=== PATIENT | male | born 1950 | race Caucasian/White ===

== ENCOUNTER 2017-02-23 00:03 | Inpatient (IN) | payer MEDICARE, MEDICAID ==
[~2017-02-23] VITALS: Ht 172.7 cm; Wt 74.8 kg
[~2017-02-23 00:03] MED LIST: ACET325T14 PO; ALBU0.63 NEB; ALPR0.257 PO; AMLO10TA2 PO; AMLO10TA4 PO; AMLODIPINE; ASPI325T4 PO; B1/B1TAB2 PO; BISA10SU2 PR; CARV3.122 PO; CARV6.2512 PO; CEFD300C37 PO; CLON0.2T PO; DIAZ5TAB4 PO; DOXE75CA PO; DOXY100T PO; ERYT1OIN5 RIGHTEYE; GABA-826 PO; GABA300C10 PO; INSU100C5 SQ-INSULIN; ISOS30TA8 PO; LISI-170 PO; MAGN400O4 PO; MECL25TA2 PO; MECL25TA4 PO; METH500T7 PO; MINO2.5T PO; NITR0.4T8 SL; NOVOLOG SC; NPH,100V SQ; OMEP40CA6 PO; ONDA4TAB7 PO; OXYC-302 PO; PANT40TA3 PO; RANI150T4 PO; ROPI0.2537 PO; SENN-31 PO; SEPTRA; SEVE800T8 PO; SIMV20TA3 PO; TIZA4CAP2 PO; TRAZ100T15 PO; VITA1TAB19 PO; ZOLP-413 PO; [UNRECOGNIZED DRUG - OTHER]
[2017-02-23] MEDS ORDERED: ASPIRIN 81 MG TABLET CHEW PO ONE (00:30)
[2017-02-23 00:41] LABS: BLOOD UREA NITROGEN 38 mg/dL (7-18)
[2017-02-23] MEDS ORDERED: ONDANSETRON 2MG/ML, 2ML ONE (00:42)
[2017-02-23 00:49] LABS: IS PT STATUS REG ER OR PRE ER? YES
[2017-02-23] MEDS ORDERED: ONDANSETRON 2MG/ML, 2ML IVPush ONE (01:00)
[2017-02-23] MEDS ORDERED: MORPHINE SULFATE 4 MG/ML, 1ML IVPush PRN ×2 (01:30→02:00)
[2017-02-23] MEDS ORDERED: MORPHINE SULFATE 4 MG/ML, 1ML ONE ×2 (01:32→02:08)
[2017-02-23] MEDS ORDERED: ONDANSETRON 2MG/ML, 2ML IVPush PRN ×2 (02:00→03:00)
[2017-02-23] MEDS: INSULIN ASPART 100 UNITS/ML, PEN SQ-INSULIN SCH ×4 (02:59→16:00)
[2017-02-23] MEDS ORDERED: ACETAMINOPHEN 325 MG TABLET PO PRN (03:00)
[2017-02-23] MEDS ORDERED: HYDROcodone/APAP 5/325 TABLET PO PRN (03:00)
[2017-02-23] MEDS ORDERED: POLYETHYLENE GLYCOL 17 GM PACKET PO PRN (03:00)
[2017-02-23] MEDS ORDERED: GLUCAGON 1 MG IM PRN (03:00)
[2017-02-23] MEDS ORDERED: hydrALAzine 20 MG/ML, 1ML IVPush PRN (03:00)
[2017-02-23] MEDS ORDERED: DOCUSATE 100 MG CAPSULE PO PRN (03:00)
[2017-02-23] MEDS ORDERED: NITROGLYCERIN 0.4 MG BOTTLE (25 TABS) SL PRN (03:00)
[2017-02-23] MEDS ORDERED: BISACODYL 10 MG SUPP PR PRN (03:00)
[2017-02-23] MEDS ORDERED: DEXTROSE 4 GM TAB.CHEW PO PRN (03:00)
[2017-02-23] MEDS ORDERED: morphine SULFATE 10 MG/ML, 1ML IVPush PRN (03:00)
[2017-02-23] MEDS ORDERED: DEXTROSE 50%, 50ML SYRINGE IVPush PRN (03:00)
[2017-02-23] MEDS ORDERED: TEMAZEPAM 15 MG CAPSULE PO PRN (03:00)
[2017-02-23] MEDS ORDERED: DIPHENHYDRAMINE 50 MG/ML, 1ML ONE ×2 (03:16→14:04)
[2017-02-23 03:23] VITALS: BP 187/96
[2017-02-23] MEDS ORDERED: DIPHENHYDRAMINE 50 MG/ML, 1ML IVPush ONE ×2 (03:30→14:30)
[2017-02-23] MEDS ORDERED: PROMETHAZINE 25 MG/ML, 1ML IM PRN (03:30)
[2017-02-23 05:42] VITALS: BP 121/73
[2017-02-23 06:30] LABS: IS PT STATUS REG ER OR PRE ER? NO
[2017-02-23] MEDS ORDERED: OMEPRAZOLE 20 MG CAPSULE.DR PO SCH (07:30)
[2017-02-23 08:00] VITALS: BP 176/82
[2017-02-23] MEDS ORDERED: ASPIRIN 325 MG TABLET PO SCH (09:00)
[2017-02-23] MEDS ORDERED: ROPINIROLE 0.25MG TABLET PO SCH (09:00)
[2017-02-23] MEDS ORDERED: LISINOPRIL 20 MG TABLET PO SCH (09:00)
[2017-02-23] MEDS ORDERED: SEVELAMER 800MG TABLET PO SCH (09:00)
[2017-02-23] MEDS ORDERED: FAMOTIDINE 20 MG TABLET PO SCH (09:00)
[2017-02-23] MEDS ORDERED: AMLODIPINE 5 MG TABLET PO SCH (09:00)
[2017-02-23] MEDS ORDERED: GABAPENTIN 300 MG CAPSULE PO SCH (09:00)
[2017-02-23] MEDS ORDERED: ISOSORBIDE MONONITRATE ER 30 MG TABLET PO SCH (09:00)
[2017-02-23] MEDS ORDERED: DIAZEPAM 5 MG TABLET PO SCH (09:00)
[2017-02-23] MEDS ORDERED: SODIUM CHLORIDE FLUSH 10ML SYR IVF SCH (09:00)
[2017-02-23] MEDS ORDERED: MINOXIDIL 2.5 MG TABLET PO SCH (09:00)
[2017-02-23 12:18] LABS: IS PT STATUS REG ER OR PRE ER? NO
[2017-02-23] MEDS ORDERED: CARV3.1212 PO (15:45)
[2017-02-23] MEDS ORDERED: SIMVASTATIN 20 MG TABLET PO SCH (21:00)
[2017-02-24 08:21] LABS: HEP B SURF. AB 7.6 mIU/mL (0.0-10.0)
== END 2017-02-23 19:28 | disposition home or self-care (01) | DRG 291 ==
LOC: ED 00:18 → EDIP 01:41 → SUATTDRO 02:13 → 5SO 02:49
PROC: 5A1D00Z (ICD-10-PCS; principal; 2017-02-23)
DX: I13.2 Hypertensive heart and chronic kidney disease with heart failure and with stage 5 chronic kidney disease, or end stage renal disease (principal); N18.6 End stage renal disease; I50.43 Acute on chronic combined systolic (congestive) and diastolic (congestive) heart failure; E44.0 Moderate protein-calorie malnutrition; D63.1 Anemia in chronic kidney disease; E11.22 Type 2 diabetes mellitus with diabetic chronic kidney disease; E78.5 Hyperlipidemia, unspecified; I08.3 Combined rheumatic disorders of mitral, aortic and tricuspid valves; I25.10 Atherosclerotic heart disease of native coronary artery without angina pectoris; G89.29 Other chronic pain; M54.9 Dorsalgia, unspecified; E11.42 Type 2 diabetes mellitus with diabetic polyneuropathy; I27.2 Other secondary pulmonary hypertension; K21.9 Gastro-esophageal reflux disease without esophagitis; Z79.4 Long term (current) use of insulin; Z68.25 Body mass index [BMI] 25.0-25.9, adult; Z80.0 Family history of malignant neoplasm of digestive organs; Z83.3 Family history of diabetes mellitus; Z86.718 Personal history of other venous thrombosis and embolism; Z87.891 Personal history of nicotine dependence; Z95.1 Presence of aortocoronary bypass graft; Z95.2 Presence of prosthetic heart valve; Z95.3 Presence of xenogenic heart valve; Z95.5 Presence of coronary angioplasty implant and graft; Z99.2 Dependence on renal dialysis
CPT/HCPCS: 36415; 71010; 80048; 82040; 82962; 84484; 85018; 85025; 86704; 86706; 87340; 93005; 93306; 96374; 96375; J2405; J0360; J1200

== ENCOUNTER 2017-10-18 19:44 | Emergency (ER) | payer MEDICARE, MEDICAID ==
[~2017-10-18] VITALS: Ht 172.7 cm; Wt 75.0 kg
[~2017-10-18 19:44] MED LIST changes: +ASPI325T17 PO; -ASPI325T4 PO; +CARV3.1212 PO; -MAGN400O4 PO; +MAGN400O7 PO; +NITR0.4T28 SL; -NITR0.4T8 SL
[2017-10-18] MEDS ORDERED: HYDROcodone/APAP 5/325 TABLET PO ONE (20:00)
[2017-10-18] MEDS ORDERED: HYDROcodone/APAP 5/325 TABLET ONE (20:04)
[2017-10-18] MEDS ORDERED: DIPHENHYDRAMINE 25 MG CAPSULE PO ONE (21:00)
[2017-10-18 21:22] VITALS: BP 124/62
== END 2017-10-18 21:25 | disposition home or self-care (01) ==
LOC: ED 21:10
DX: M94.0 Chondrocostal junction syndrome [Tietze] (principal); W18.39XA Other fall on same level, initial encounter; E11.22 Type 2 diabetes mellitus with diabetic chronic kidney disease; I25.10 Atherosclerotic heart disease of native coronary artery without angina pectoris; Z99.2 Dependence on renal dialysis; Y93.89 Activity, other specified; Y99.8 Other external cause status; Y92.89 Other specified places as the place of occurrence of the external cause
CPT/HCPCS: 71046; 93005; 99284

== ENCOUNTER 2017-11-09 10:52 | Inpatient (IN) | payer MEDICARE, MEDICAID ==
[~2017-11-09] VITALS: Ht 172.7 cm; Wt 71.0 kg
[2017-11-09 11:40] LABS: BASOPHILS # (AUTO) 0.02 x10^3/uL (0-0.1); BASOPHILS % (AUTO) 0 % (0-1); EOSINOPHILS # (AUTO) 0.05 x10^3/uL (0-0.4); EOSINOPHILS % (AUTO) 1 % (1-7); LYMPHOCYTES # (AUTO) 0.79 x10^3/uL (1-3.4); LYMPHOCYTES % (AUTO) 11 % (22-44); MD NO; MEAN CORPUSCULAR HEMOGLOBIN 31.5 pg (27.5-34.5); MEAN CORPUSCULAR HGB CONC 32.7 g/dL (33.2-36.2); MEAN CORPUSCULAR VOLUME 96.4 fL (81-97); MEAN PLATELET VOLUME 8.5 fL (7.4-10.4); MONOCYTES # (AUTO) 0.63 x10^3/uL (0.2-0.8); MONOCYTES % (AUTO) 9 % (2-9); NEUTROPHILS # (AUTO) 5.47 x10^3/uL (1.8-6.8); NEUTROPHILS % (AUTO) 79 % (42-75); PLATELET COUNT 157 x10^3/uL (130-400); RED BLOOD COUNT 3.61 x10^6/uL (4.38-5.82); RED CELL DISTRIBUTION WIDTH 17.1 % (9.4-14.8)
[2017-11-09 11:50] LABS: ALANINE AMINOTRANSFERASE 7 U/L (12-78); ALBUMIN 3.7 g/dL (3.4-5.0); ANION GAP 9 mmol/L (5-15); CALCIUM 9.8 mg/dL (8.5-10.1); CHLORIDE 93 mmol/L (98-107); CREATININE 6.76 mg/dL (0.7-1.3)
[2017-11-09 11:52] LABS: ACETONE, SERUM Small (20mg/dL) mg/dL (Negative); ALKALINE PHOSPHATASE 141 U/L (45-117); BILIRUBIN,TOTAL 0.7 mg/dL (0.2-1.0); TOTAL PROTEIN 7.4 g/dL (6.4-8.2)
[2017-11-09] MEDS ORDERED: ONDANSETRON ODT 4 MG PO ONE (12:00)
[2017-11-09] MEDS ORDERED: CLOP75TA PO (12:29)
[2017-11-09] MEDS ORDERED: LOSA100T6 PO (12:29)
[2017-11-09] MEDS ORDERED: CLON0.2T PO (12:29)
[2017-11-09] MEDS ORDERED: OMEP-110 PO (12:29)
[2017-11-09] MEDS ORDERED: CARV12.52 PO (12:29)
[2017-11-09] MEDS ORDERED: GABA300C10 PO (12:29)
[2017-11-09] MEDS ORDERED: TRAZ100T15 PO (12:29)
[2017-11-09] MEDS ORDERED: ATOR-2 PO (12:29)
[2017-11-09] MEDS ORDERED: CLON0.1T PO (12:29)
[2017-11-09] MEDS ORDERED: CARB/LEVO PO (12:29)
[2017-11-09] MEDS ORDERED: SODIUM CHLORIDE FLUSH 10ML SYR IVF ONE (12:30)
[2017-11-09] MEDS ORDERED: ONDANSETRON ODT 4 MG PO PRN (13:00)
[2017-11-09] MEDS ORDERED: HYDROcodone/APAP 5/325 TABLET PO PRN (13:00)
[2017-11-09] MEDS ORDERED: ONDANSETRON 2MG/ML, 2ML IVPush PRN (13:00)
[2017-11-09] MEDS ORDERED: HEPARIN 5,000 UNITS/ML, 1ML SQ SCH (13:00)
[2017-11-09] MEDS ORDERED: LABETALOL 5MG/ML, 20ML IVPush PRN (13:00)
[2017-11-09] MEDS ORDERED: HEPARIN 5,000 UNITS/ML, 1ML ONE (13:29)
[2017-11-09 14:38] VITALS: BP 164/94
[2017-11-09 15:14] VITALS: BP 147/81
[2017-11-09 15:44] LABS: TROPONIN I 0.359 ng/mL (0.000-0.045)
[2017-11-09] MEDS ORDERED: CARVEDILOL 12.5 MG TABLET PO SCH (21:00)
[2017-11-09] MEDS ORDERED: GABAPENTIN 300 MG CAPSULE PO SCH (21:00)
[2017-11-09] MEDS ORDERED: ISOSORBIDE MONONITRATE ER 60 MG TABLET PO SCH (21:00)
[2017-11-09] MEDS ORDERED: ATORVASTATIN 40 MG TABLET PO SCH (21:00)
[2017-11-09] MEDS ORDERED: TRAZODONE 100MG TABLET PO SCH (21:00)
[2017-11-09] MEDS ORDERED: AMLODIPINE 5 MG TABLET PO SCH (21:00)
[2017-11-09] MEDS ORDERED: OMEPRAZOLE 20 MG CAPSULE.DR PO SCH (21:00)
[2017-11-10] MEDS ORDERED: SEVELAMER CARBONATE 800MG TAB PO SCH (09:00)
[2017-11-10] MEDS ORDERED: ASPIRIN 325 MG TABLET PO SCH (09:00)
[2017-11-10] MEDS ORDERED: CLOPIDOGREL 75 MG TABLET PO SCH (09:00)
== END 2017-11-09 18:17 | disposition left against medical advice (07) | DRG 391 ==
LOC: ED 11:59 → EDIP 12:00 → ED 12:22 → 4WST 14:19
PROVIDERS: ADMIT Internal Medicine; ATTEND Internal Medicine
DX: R11.2 Nausea with vomiting, unspecified (principal); N18.6 End stage renal disease; I13.2 Hypertensive heart and chronic kidney disease with heart failure and with stage 5 chronic kidney disease, or end stage renal disease; E44.0 Moderate protein-calorie malnutrition; E11.22 Type 2 diabetes mellitus with diabetic chronic kidney disease; E83.39 Other disorders of phosphorus metabolism; I27.20 Pulmonary hypertension, unspecified; E11.42 Type 2 diabetes mellitus with diabetic polyneuropathy; I50.40 Unspecified combined systolic (congestive) and diastolic (congestive) heart failure; D63.8 Anemia in other chronic diseases classified elsewhere; E11.65 Type 2 diabetes mellitus with hyperglycemia; E78.5 Hyperlipidemia, unspecified; F17.210 Nicotine dependence, cigarettes, uncomplicated; G25.81 Restless legs syndrome; I25.10 Atherosclerotic heart disease of native coronary artery without angina pectoris; K21.9 Gastro-esophageal reflux disease without esophagitis; Z80.0 Family history of malignant neoplasm of digestive organs; Z83.3 Family history of diabetes mellitus; Z86.718 Personal history of other venous thrombosis and embolism; Z91.19 Patient's noncompliance with other medical treatment and regimen; Z95.1 Presence of aortocoronary bypass graft; Z95.3 Presence of xenogenic heart valve; Z95.5 Presence of coronary angioplasty implant and graft; Z99.2 Dependence on renal dialysis; Z68.23 Body mass index [BMI] 23.0-23.9, adult
CPT/HCPCS: 36415; 74022; 80053; 82010; 83605; 83690; 83735; 84100; 84439; 84484; 85025; 93005; 93306; 96372; 99285; J1644

== ENCOUNTER 2017-12-26 09:35 | Emergency (ER) | payer MEDICARE, MEDICAID ==
[~2017-12-26] VITALS: Ht 172.7 cm; Wt 71.0 kg
[~2017-12-26 09:35] MED LIST changes: +ATOR-2 PO; +CARB/LEVO PO; +CARV12.52 PO; +CLON0.1T PO; +CLOP75TA PO; +LOSA100T6 PO; +OMEP-110 PO
[2017-12-26] MEDS ORDERED: OXYMETAZOLINE NASAL SPRAY 0.05%, 15ML ONE (09:52)
[2017-12-26] MEDS ORDERED: SILVER NITRATE STICK TP ONE (09:52)
[2017-12-26] MEDS ORDERED: SODIUM CHLORIDE 0.9% IVPB ONE (10:30)
[2017-12-26] MEDS ORDERED: DESMOPRESSIN IVPB ONE (10:30)
[2017-12-26] MEDS ORDERED: HYDROcodone/APAP 5/325 TABLET ONE (10:45)
[2017-12-26 10:52] VITALS: BP 147/86
[2017-12-26] MEDS ORDERED: MORPHINE SULFATE 4 MG/ML, 1ML IVPush ONE (11:00)
[2017-12-26] MEDS ORDERED: OXYMETAZOLINE NASAL SPRAY 0.05%, 15ML NAS ONE (11:00)
[2017-12-26] MEDS ORDERED: HYDROcodone/APAP 5/325 TABLET PO ONE (11:00)
[2017-12-26 11:01] LABS: MEAN CORPUSCULAR HEMOGLOBIN 30.5 pg (27.5-34.5); MEAN CORPUSCULAR HGB CONC 31.2 g/dL (33.2-36.2); MEAN CORPUSCULAR VOLUME 97.6 fL (81-97); MEAN PLATELET VOLUME 8.4 fL (7.4-10.4); PLATELET COUNT 174 x10^3/uL (130-400); RED BLOOD COUNT 3.73 x10^6/uL (4.38-5.82); RED CELL DISTRIBUTION WIDTH 22.2 % (9.4-14.8)
[2017-12-26] MEDS ORDERED: MORPHINE SULFATE 4 MG/ML, 1ML ONE (11:19)
[2017-12-26 11:49] LABS: BASOPHILS # (AUTO) 0.03 x10^3/uL (0-0.1); BASOPHILS % (AUTO) 0 % (0-1); EOSINOPHILS # (AUTO) 0.08 x10^3/uL (0-0.4); EOSINOPHILS % (AUTO) 1 % (1-7); LYMPHOCYTES # (AUTO) 1.18 x10^3/uL (1-3.4); LYMPHOCYTES % (AUTO) 11 % (22-44); MD MORPH REVIEW ONLY; MONOCYTES # (AUTO) 0.79 x10^3/uL (0.2-0.8); MONOCYTES % (AUTO) 7 % (2-9); NEUTROPHILS # (AUTO) 8.73 x10^3/uL (1.8-6.8); NEUTROPHILS % (AUTO) 81 % (42-75)
[2017-12-26 11:51] LABS: ANISOCYTOSIS 2+; HYPOCHROMIA 1+; POLYCHROMASIA 1+
[2017-12-26 11:52] LABS: <PLATELET ESTIMATE> ADEQUATE; <PLT MORPHOLOGY> NORMAL PLT MORPH; OVALOCYTES 1+; SCHISTOCYTES 1+
[2017-12-26] MEDS ORDERED: HYDROmorphone 1 MG/ML, 1ML IV ONE (12:00)
[2017-12-26] MEDS ORDERED: HYDROmorphone 2 MG/ML, 1ML ONE (12:17)
== END 2017-12-26 13:17 | disposition home or self-care (01) ==
LOC: ED 10:02
DX: R04.0 Epistaxis (principal); I13.2 Hypertensive heart and chronic kidney disease with heart failure and with stage 5 chronic kidney disease, or end stage renal disease; E11.22 Type 2 diabetes mellitus with diabetic chronic kidney disease; N18.6 End stage renal disease; I50.9 Heart failure, unspecified; Z99.2 Dependence on renal dialysis; I25.10 Atherosclerotic heart disease of native coronary artery without angina pectoris; Z87.891 Personal history of nicotine dependence
CPT/HCPCS: 30905; 36415; 85025; 96374; 96375; 99284; J1170; J2597